=== PATIENT | male | born 1975 | race Two or more races ===

== ENCOUNTER 2022-06-11 10:12 | Emergency (ER) | payer MEDICAID ==
[~2022-06-11] VITALS: Ht 185.4 cm; Wt 132.7 kg
[2022-06-11] MEDS ORDERED: ACETAMINOPHEN 500 MG TAB PO ONE (12:15)
[2022-06-11 12:33] VITALS: BP 124/88
[2022-06-11] MEDS ORDERED: LORA-483 GT (13:30)
[2022-06-11] MEDS ORDERED: IBUP800T26 PO (13:30)
== END 2022-06-11 13:40 | disposition home or self-care (01) ==
LOC: ER 10:14
DX: J02.8 Acute pharyngitis due to other specified organisms (principal)
CPT/HCPCS: 87070; 87880